=== PATIENT | male | born 1985 | race Caucasian/White ===

== ENCOUNTER → 2016-12-01 | Outpatient (CLI) | payer OTHER ==
--- NOTE | 2016-12-01 10:37 | REP ---
THORACIC SPINE: AP and lateral views of thoracic spine performed. There is no compression fracture or malalignment. There is normal thoracic kyphosis. The disc spaces appear relatively well preserved. The posterior elements appear intact. IMPRESSION: Essentially negative thoracic spine series. Signed by Kirk York MD 12/01/2016 02:45 P
--- NOTE | 2016-12-01 10:38 | REP ---
LUMBOSACRAL SPINE: Five views of the lumbosacral spine are performed. There is no compression fracture or malalignment with normal lumbar lordosis. There is no evidence of spondylolysis or spondylolisthesis. Disc spaces appear well preserved. Posterior elements appear intact. IMPRESSION: Essentially negative lumbosacral spine series. Signed by Kirk York MD 12/01/2016 02:45 P
== END ==
LOC: M RAD 08:56
PROVIDERS: ATTEND Surgery
DX: M54.9 Dorsalgia, unspecified (principal)